=== PATIENT | female | born 1995 | race Caucasian/White ===

== ENCOUNTER → 2017-11-04 | Outpatient (CLI) | payer BC ==
--- NOTE | 2017-11-05 09:44 | ECHOF ---
Referral Reason:I49.3 Premature Ventricular Beat MEASUREMENTS -------- HEIGHT: 162.6 cm WEIGHT: 49.4 kg BP: RVIDd: 2.2 cm (< 3.3) IVSd: 0.7 cm (0.6 - 1.1) LVIDd: 3.6 cm (3.9 - 5.3) LVPWd: 0.8 cm (0.6 - 1.1) IVSs: 1.0 cm LVIDs: 2.3 cm LVPWs: 0.9 cm LAESV Index (A-L): 14.94 ml/m Ao Diam: 2.3 cm (2.0 - 3.7) AV Cusp: 1.7 cm (1.5 - 2.6) LA Diam: 2.3 cm (2.7 - 3.8) EPSS: 0.2 cm MV E Syed: 0.93 m/s MV DecT: 236 ms MV A Syed: 0.53 m/s MV E/A Ratio: 1.75 RAP: 5.00 mmHg RVSP: 9.62 mmHg MV EF SLOPE: 110.50 mm/s (70 - 150) MV EXCURSION: 2.14 cm (> 18.000) FINDINGS -------- Sinus rhythm. This was a technically good study. The left ventricular size is normal. Left ventricular wall thickness is normal. Overall left vent ricular systolic function is normal with, an EF between 55 - 60 %. The right ventricle is normal in size and function. Normal LA size by volume 22+/-6 ml/m2. The right atrium is normal in size. The aortic valve is trileaflet, and appears structurally normal. No aortic stenosis or regurgitation. The mitral valve is normal. There is trace mitral regurgitation. Trace tricuspid regurgitation present. Right ventricular systolic pressure is normal at < 35 mmHg. There is no evidence of pulmonary hypertension. The pulmonic valve is normal. The aortic root size is normal. Normal inferior vena cava with normal inspiratory collapse consistent with estimated right atrial pre ssure of 5 mmHg. There is no pericardial effusion. CONCLUSIONS -------- 1. Sinus rhythm. 2. This was a technically good study. 3. The left ventricular size is normal. 4. Left ventricular wall thickness is normal. 5. Overall left ventricular systolic function is normal with, an EF between 55 - 60 %. 6. Normal LA size by volume 22+/-6 ml/m2. 7. The aortic valve is trileaflet, and appears structurally normal. No aortic stenosis or regurgitati on. 8. There is trace mitral regurgitation. 9. Trace tricuspid regurgitation present. 10. Right ventricular systolic pressure is normal at < 35 mmHg. 11. There is no evidence of pulmonary hypertension. 12. The aortic root size is normal. 13. There is no pericardial effusion. [employer]IEF: Jesus Alberto Flannery RDCS
== END | disposition home or self-care (01) ==
LOC: RADECHMAIN 16:12
PROVIDERS: ATTEND Family Medicine
DX: I08.1 Rheumatic disorders of both mitral and tricuspid valves (principal)
CPT/HCPCS: 93306